=== PATIENT | female | born 1985 | race Caucasian/White ===

== ENCOUNTER 2020-03-06 06:00 | Inpatient (IN) ==
[2020-03-06] MEDS ORDERED: *HR* FentaNYL (PF) 100 MCG/2 ML VIAL IVP PRN (06:34)
[2020-03-06] MEDS ORDERED: Ondansetron 4 MG/2 ML VIAL IVP PRN ×2 (06:34→08:21)
[2020-03-06] MEDS ORDERED: Metoclopramide 10 MG/2 ML VIAL IVP PRN (06:34)
[2020-03-06] MEDS ORDERED: Naloxone 0.4 MG/ML INJ IVP PRN ×2 (06:34→08:21)
[2020-03-06] MEDS ORDERED: Famotidine 20 MG/2 ML VIAL IVP PRN (06:34)
[2020-03-06 07:01] LABS: Basophils % 0.4 %; Eosinophils # 0.1 K/mcL (0.0-0.6); Hematocrit 37.6 % (35.3-44.9); Hemoglobin 12.7 g/dL (11.5-15.4); Immature Granulocytes % 0.4 % (0-4); Lymphocytes # 1.9 K/mcL (0.6-4.6); Lymphocytes % 23.3 %; Mean Corpuscular HGB Conc 33.8 g/dL (31.6-35.5); Mean Corpuscular Hemoglobin 31.3 pg (28.0-33.3); Mean Corpuscular Volume 92.6 fL (83.0-100.0); Mean Platelet Volume 10.7 fL (9.4-12.4); Monocytes # 0.5 K/mcL (0.0-1.3); Monocytes % 6.7 %; Neutrophils # 5.5 K/mcL (1.6-8.9); Platelet Count 239 K/mcL (140-400); Red Blood Count 4.06 M/mcL (3.82-4.97); Red Cell Distribution Width 12.3 % (11.5-14.5); Segmented Neutrophils % 68.2 %
[2020-03-06] MEDS ORDERED: miSOPROStoL 25 MCG TABLET VG SCH (08:00)
[2020-03-06] MEDS ORDERED: EPHEDrine 50 MG/ML VIAL IVP PRN (08:21)
[2020-03-06] MEDS ORDERED: *HR* FentaNYL (PF) 100 MCG/2 ML VIAL EP ONE (08:21)
[2020-03-06] MEDS ORDERED: Ropivacaine/PF 0.2% 20 ML VIAL EP ONE (08:21)
[2020-03-06] MEDS ORDERED: Epidural Premix (fent/bupiv) 110 ML EP SCH (08:30)
[2020-03-06 09:42] LABS: Amphetamine Screen,Urine Negative ng/mL (Cutoff=1000); Barbiturate Screen,Urine Negative ng/mL (Cutoff=200); Benzodiazepines Screen,Urine Negative ng/mL (Cutoff=200); Cannabinoid Screen,Urine Negative ng/mL (Cutoff = 50); Cocaine Screen,Urine Negative ng/mL (Cutoff= 300); Opiate Screen,Urine Negative ng/mL (Cutoff=300); Phencyclidine Screen,Urine Negative ng/mL (Cutoff=25)
[2020-03-06] MEDS: Ringers Solution, Lactated 1,000 ML IVC SCH ×3 (10:00→18:46)
[2020-03-06] MEDS ORDERED: Oxytocin 20 units/ LR 1000 mL 20 UNIT/1,000 ML BAG IVC SCH (11:50)
[2020-03-06] MEDS ORDERED: Ropivacaine/PF 0.2% 20 ML VIAL ONE (14:15)
[2020-03-07] MEDS ORDERED: Lidocaine 1% 20 ML MDV ONE (03:21)
[2020-03-07] MEDS ORDERED: Lanolin 7 G OINT...G. TP PRN (06:21)
[2020-03-07] MEDS ORDERED: Oxytocin 20 units/ LR 1000 mL 20 UNIT/1,000 ML BAG IVC SCH (06:21)
[2020-03-07] MEDS: Ibuprofen 600 MG TABLET PO PRN ×3 (06:30→21:35)
[2020-03-07] MEDS: Benzocaine/Menthol 56 GM AEROSOL SPRAY TP PRN (06:31)
[2020-03-07] MEDS: Prenatal Vit/FA 1 EACH TABLET PO SCH (08:19)
[2020-03-07] MEDS: Acetaminophen 325 MG TABLET PO PRN (11:06)
[2020-03-07] MEDS: *HR* HYDROcodone/Acet 5/325 mg TABLET PO PRN (17:08)
[2020-03-08] MEDS: *HR* HYDROcodone/Acet 5/325 mg TABLET PO PRN (01:19)
[2020-03-08 06:23] LABS: Basophils % 0.2 %; Eosinophils # 0.1 K/mcL (0.0-0.6); Eosinophils % 0.8 %; Hematocrit 30.3 % (35.3-44.9); Immature Granulocytes % 0.3 % (0-4); Lymphocytes # 2.3 K/mcL (0.6-4.6); Lymphocytes % 17.9 %; Mean Corpuscular HGB Conc 33.7 g/dL (31.6-35.5); Mean Corpuscular Hemoglobin 30.9 pg (28.0-33.3); Mean Corpuscular Volume 91.8 fL (83.0-100.0); Monocytes # 0.8 K/mcL (0.0-1.3); Monocytes % 6.4 %; Platelet Count 174 K/mcL (140-400); Red Cell Distribution Width 12.9 % (11.5-14.5); Segmented Neutrophils % 74.4 %
[2020-03-08 06:24] LABS: Hemoglobin 10.2 g/dL (11.5-15.4); Neutrophils # 9.5 K/mcL (1.6-8.9); White Blood Count 12.7 K/mcL (4.3-11.1)
[2020-03-08] MEDS: Prenatal Vit/FA 1 EACH TABLET PO SCH (07:53)
[2020-03-08] MEDS: Acetaminophen 325 MG TABLET PO PRN (07:54)
[2020-03-08] MEDS: Ibuprofen 600 MG TABLET PO PRN (07:54)
[2020-03-08 07:59] VITALS: BP 120/75
[2020-03-08] MEDS: Benzocaine/Menthol 56 GM AEROSOL SPRAY TP PRN (11:16)
== END 2020-03-08 12:00 | disposition home or self-care (01) | DRG 807 ==
LOC: 1NENULAB 06:05 → 1NENUOBS 03-07 06:20
PROVIDERS: ADMIT Obstetrics & Gynecology; ATTEND Obstetrics & Gynecology